=== PATIENT | male | born 1950 | race African-American/Black ===

== ENCOUNTER 2017-01-20 20:42 | Emergency (ER) | payer MEDICAID, OTHER ==
[~2017-01-20] VITALS: Ht 180.3 cm; Wt 87.1 kg
--- NOTE | 2017-01-20 21:09 | NUR ---
Pt is received alert, responsive as he came in with family at bedside c/o right midfinger pain , mostly when bending. His care continue as he is been seen by MD.
[2017-01-20 21:34] VITALS: BP 147/103
--- NOTE | 2017-01-20 21:35 | NUR ---
Pt is been disxcharge to home with dicharge instructions given and on Doxycycline 100mg po x2 daily and Ibprofen 600mg x3 daily as he is stable.
== END 2017-01-20 21:37 | disposition home or self-care (01) ==
LOC: ER 20:44
DX: M19.90 Unspecified osteoarthritis, unspecified site (principal); M79.89 Other specified soft tissue disorders; F17.200 Nicotine dependence, unspecified, uncomplicated; Z88.1 Allergy status to other antibiotic agents; Z88.2 Allergy status to sulfonamides
CPT/HCPCS: 99283; 99406; A4663

== ENCOUNTER 2017-05-12 22:35 | Emergency (ER) | payer MEDICAID ==
[~2017-05-12] VITALS: Ht 180.3 cm; Wt 80.7 kg
[2017-05-13] MEDS: OXYCODONE/APAP 5-325 MG TABLET PO ONE ×2 (00:16→00:22)
[2017-05-13] MEDS: ONDANSETRON ODT 4 MG TAB.RAPDIS SL ONE ×2 (00:16→00:20)
--- NOTE | 2017-05-13 00:18 | NUR ---
Patient discharged to home in stable conditon with family. Written and verbal after care instructions given. Patient verbalizes understanding of instructions. Stressed follow up or return to ER for worsening s/s.
--- NOTE | 2017-05-13 00:18 | NUR ---
Pt was not given Percocet po because pt stated he is driving home.
[2017-05-13] MEDS ORDERED: ONDANSETRON ODT 4 MG TAB.RAPDIS ONE (00:31)
[2017-05-13] MEDS ORDERED: OXYCODONE/APAP 5-325 MG TABLET ONE (00:31)
== END 2017-05-13 00:25 | disposition home or self-care (01) ==
LOC: ER 22:37
DX: S29.012A Strain of muscle and tendon of back wall of thorax, initial encounter (principal); F17.200 Nicotine dependence, unspecified, uncomplicated; J40 Bronchitis, not specified as acute or chronic; Z88.1 Allergy status to other antibiotic agents; Z88.2 Allergy status to sulfonamides; X58.XXXA Exposure to other specified factors, initial encounter; Y93.89 Activity, other specified; Y92.89 Other specified places as the place of occurrence of the external cause; Y99.8 Other external cause status
CPT/HCPCS: 70210; 71045; 99284; 99406; A4663; Q0162

== ENCOUNTER 2017-06-24 13:02 | Emergency (ER) | payer MEDICAID ==
[~2017-06-24] VITALS: Ht 182.9 cm; Wt 72.6 kg
[2017-06-24] MEDS ORDERED: HYDROCORTISONE PO (13:22)
[2017-06-24] MEDS ORDERED: CABERGOLINE PO (13:22)
[2017-06-24] MEDS ORDERED: [UNRECOGNIZED DRUG - OTHER] INJ (13:22)
[2017-06-24] MEDS ORDERED: LEVO88TA2 PO (13:22)
--- NOTE | 2017-06-24 14:10 | NUR ---
Patient discharged to home in stable conditon. Written and verbal after care instructions given. Patient verbalizes understanding of instructions.
[2017-06-24 14:11] VITALS: BP 118/70
== END 2017-06-24 14:11 | disposition home or self-care (01) ==
LOC: ER 13:09
DX: J06.9 Acute upper respiratory infection, unspecified (principal); Z88.2 Allergy status to sulfonamides; Z88.1 Allergy status to other antibiotic agents; Z88.8 Allergy status to other drugs, medicaments and biological substances
CPT/HCPCS: 71045; A4663

== ENCOUNTER 2020-02-16 19:14 | Emergency (ER) | payer MEDICAID, MEDICARE ==
[~2020-02-16] VITALS: Ht 180.3 cm; Wt 79.4 kg
[~2020-02-16 19:14] MED LIST: CABERGOLINE PO; HYDROCORTISONE PO; LEVO88TA2 PO; [UNRECOGNIZED DRUG - OTHER] INJ
[2020-02-16] MEDS ORDERED: TDAP DIPH,PERTUSS,TET VAC/PF 0.5 ML DISP.SYRIN IM ONE ×2 (19:41→19:45)
[2020-02-16 19:54] VITALS: BP 134/92
== END 2020-02-16 19:55 | disposition home or self-care (01) ==
LOC: ER 19:15
DX: S61.210A Laceration without foreign body of right index finger without damage to nail, initial encounter (principal); W26.8XXA Contact with other sharp object(s), not elsewhere classified, initial encounter; Y92.89 Other specified places as the place of occurrence of the external cause; Z88.1 Allergy status to other antibiotic agents; Z88.2 Allergy status to sulfonamides; Z86.39 Personal history of other endocrine, nutritional and metabolic disease; Z79.890 Hormone replacement therapy; R03.0 Elevated blood-pressure reading, without diagnosis of hypertension
CPT/HCPCS: 90715; A4217; A4663

== ENCOUNTER 2020-02-26 17:56 | Inpatient (IN) | payer MEDICARE ==
[~2020-02-26] VITALS: Ht 180.3 cm; Wt 80.3 kg
--- NOTE | 2020-02-26 18:37 | NUR ---
Dr Guan at the bedside for MSE.
[2020-02-26] MEDS ORDERED: IPRATROPIUM BROMIDE 0.5 MG/2.5 ML NEBU NEB ONE ×2 (18:45→22:30)
[2020-02-26] MEDS ORDERED: IV NORMAL SALINE 1000 ML BAG IV ONE (18:45)
[2020-02-26] MEDS ORDERED: ALBUTEROL SULFATE 2.5 MG/3 ML NEBU NEB ONE ×2 (18:45→22:30)
[2020-02-26] MEDS ORDERED: ALBUTEROL SULFATE 2.5 MG/3 ML NEBU ONE ×2 (18:50→22:31)
[2020-02-26] MEDS ORDERED: IPRATROPIUM BROMIDE 0.5 MG/2.5 ML NEBU ONE ×2 (18:51→22:31)
[2020-02-26 19:01] LABS: BASOPHILS # (AUTO) 0.1 K/uL (0.0-8.0); BASOPHILS % (AUTO) 0.9 % (0.0-2.0); EOSINOPHILS # (AUTO) 0.4 K/uL (0.0-0.7); EOSINOPHILS % (AUTO) 5.2 % (0.0-7.0); HEMOGLOBIN 13.3 g/dL (12.5-16.3); LYMPHOCYTES # (AUTO) 2.3 K/uL (20.0-40.0); LYMPHOCYTES % (AUTO) 27.4 % (20.5-51.5); MEAN CORPUSCULAR HEMOGLOBIN 30.7 uug (23.8-33.4); MEAN CORPUSCULAR HGB CONC 34 g/dL (32.5-36.3); MEAN CORPUSCULAR VOLUME 90.3 fL (73.0-96.2); MONOCYTES # (AUTO) 0.8 K/uL (2.0-10.0); MONOCYTES % (AUTO) 9.1 % (0.0-11.0); NEUTROPHILS # (AUTO) 4.9 K/uL (1.8-8.9); NEUTROPHILS % (AUTO) 57.4 % (38.5-71.5); PLATELET COUNT (AUTO) 225 K/uL (152-348); RED BLOOD CELL COUNT(AUTO) 4.32 MIL/uL (4.06-5.63); WHITE BLOOD COUNT (AUTO) 8.6 K/uL (3.6-10.2)
[2020-02-26 19:04] LABS: CREATININE 1.3 mg/dL (0.6-1.3); POTASSIUM 4.1 mmol/L (3.5-5.1)
[2020-02-26 19:17] LABS: BILIRUBIN,DIRECT 0.1 mg/dL (0.0-0.2); BILIRUBIN,TOTAL 0.3 mg/dL (0.2-1.0); TOTAL PROTEIN, SERUM 7.4 g/dL (6.4-8.2)
[2020-02-26] MEDS ORDERED: IV NORMAL SALINE 250 ML IV ONE (19:46)
[2020-02-26] MEDS ORDERED: IOHEXOL 350 100 ML INFUS..BTL ONE (19:46)
[2020-02-26] MEDS ORDERED: SWABABLE VALVE TRANSFER SET EA MC ONE (19:46)
--- NOTE | 2020-02-26 19:55 | NUR ---
Pt out of ER for CT.
--- NOTE | 2020-02-26 20:23 | NUR ---
Pt back to ER from CT.
[2020-02-26] MEDS ORDERED: HEPARIN SODIUM,PORCINE 5,000 UNITS/ML VIAL ONE (21:29)
[2020-02-26] MEDS ORDERED: HEPARIN SODIUM,PORCINE 5,000 UNITS/ML VIAL IV ONE (21:30)
--- NOTE | 2020-02-26 21:31 | NUR ---
Dr. Guan on panel call with Luiza Hurst NP. Patient accepted for admission to [facility], diagnosis: pulmonary embolism.
[2020-02-26] MEDS ORDERED: ONDANSETRON 4 MG/2 ML VIAL IV PRN (23:15)
[2020-02-26] MEDS ORDERED: MAGNESIUM HYDROXIDE 30 ML LIQUID UDC PO PRN (23:15)
[2020-02-26] MEDS ORDERED: Z GUARD REMEDY PASTE 57 GM TUBE TOP PRN (23:15)
[2020-02-26] MEDS ORDERED: ACETAMINOPHEN 325 MG TABLET PO PRN (23:15)
--- NOTE | 2020-02-27 00:15 | NUR ---
Ultrasound at bedside.
--- NOTE | 2020-02-27 01:14 | NUR ---
Report given to Elena MEADE Tele.
[2020-02-27 01:48] VITALS: BP 120/67
--- NOTE | 2020-02-27 01:48 | NUR ---
Received pt via yahir from ED. Pt AAOx4. No s/s of acute distress noted. Pt on 4L NC and denies SOB. Safety measures in place and will continue to monitor.
[2020-02-27 04:00] VITALS: BP 107/66
[2020-02-27] MEDS: PANTOPRAZOLE SODIUM 40 MG TABLET.DR PO SCH (06:18)
[2020-02-27] MEDS: LEVOTHYROXINE SODIUM 88 MCG TABLET PO SCH (06:19)
[2020-02-27 06:42] LABS: BASOPHILS % (AUTO) 0.6 % (0.0-2.0); EOSINOPHILS # (AUTO) 0.3 K/uL (0.0-0.7); EOSINOPHILS % (AUTO) 5.4 % (0.0-7.0); HEMATOCRIT 34.8 % (36.7-47.1); HEMOGLOBIN 11.8 g/dL (12.5-16.3); LYMPHOCYTES % (AUTO) 31.8 % (20.5-51.5); MEAN CORPUSCULAR HEMOGLOBIN 30.8 uug (23.8-33.4); MEAN CORPUSCULAR HGB CONC 34 g/dL (32.5-36.3); MEAN CORPUSCULAR VOLUME 90.6 fL (73.0-96.2); MONOCYTES # (AUTO) 0.7 K/uL (2.0-10.0); MONOCYTES % (AUTO) 10.8 % (0.0-11.0); NEUTROPHILS # (AUTO) 3.3 K/uL (1.8-8.9); NEUTROPHILS % (AUTO) 51.4 % (38.5-71.5); PLATELET COUNT (AUTO) 194 K/uL (152-348); RED BLOOD CELL COUNT(AUTO) 3.84 MIL/uL (4.06-5.63); WHITE BLOOD COUNT (AUTO) 6.4 K/uL (3.6-10.2)
[2020-02-27 07:11] LABS: CREATININE 1.3 mg/dL (0.6-1.3); MAGNESIUM 2.1 mg/dL (1.8-2.4); PHOSPHOROUS 3.4 mg/dL (2.5-4.9); POTASSIUM 3.9 mmol/L (3.5-5.1); THYROID STIMULATING HORMONE 0.217 mIU/mL (0.358-3.740)
--- NOTE | 2020-02-27 07:30 | NUR ---
Received patient AOx4 in bed asleep. Easy to awake. Complains of back pain. Rama SOB or chest pain. on 4L NC saturating at 96%. All needs met at this time. Safety and fall precautions in place. Will continue to monitor.
--- NOTE | 2020-02-27 08:30 | NUR ---
RECEIVED PATIENT AWAKE, ALERT AND ORIENTED X 4. SR ON MONITOR. ON 4L O2 NC, SATURATION AT 97%. IV ON LEFT AC 18G - FLUSHED AND PATENT. CONTINENT OF B/B. ABLE TO AMBULATE TO BATHROOM. SAFETY PRECAUTIONS IN PLACE. WILL CONTINUE TO MONITOR.
--- NOTE | 2020-02-27 08:37 | NUR ---
Hold lovenox per md order
[2020-02-27] MEDS ORDERED: ENOXAPARIN SODIUM 80 MG/0.8 ML DISP.SYRIN SQ SCH (09:00)
[2020-02-27] MEDS ORDERED: LEVOTHYROXINE SODIUM 88 MCG TABLET PO SCH (09:00)
[2020-02-27] MEDS: RIVAROXABAN 15 MG TABLET PO SCH ×2 (10:04→20:57)
[2020-02-27] MEDS: ALBUTEROL SULFATE 2.5 MG/3 ML NEBU NEB SCH ×4 (11:17→23:03)
[2020-02-27] MEDS: IPRATROPIUM BROMIDE 0.5 MG/2.5 ML NEBU NEB SCH ×4 (11:17→23:03)
[2020-02-27 11:30] VITALS: BP 108/64
[2020-02-27 16:00] VITALS: BP 117/68
[2020-02-27 20:03] VITALS: BP 110/74
--- NOTE | 2020-02-27 21:00 | NUR ---
Patient awake, alert and in bed. Patient has no s/s of respiratory distress at this time. On 4L/min NC. Does not report pain at this time. Bed is locked and in the lowest position. Tolerated all medications that were given. Will continue to monitor.
[2020-02-28 00:08] VITALS: BP 123/65
[2020-02-28] MEDS: IPRATROPIUM BROMIDE 0.5 MG/2.5 ML NEBU NEB SCH ×6 (03:45→22:30)
[2020-02-28] MEDS: ALBUTEROL SULFATE 2.5 MG/3 ML NEBU NEB SCH ×6 (03:45→22:30)
[2020-02-28 04:00] VITALS: BP 122/59
--- NOTE | 2020-02-28 06:00 | NUR ---
Patient slept throughout the night with no complaints. No s/s of pain throughout the night. On 4L NC. Patient given a breathing tx Q4H but is still coughing. Bed is locked and in lowest position. Side rails up X 2. Will endorse to day shift.
[2020-02-28 06:21] LABS: ABG BASE EXCESS 0.8 mmol/L; ABG HCO3 25.9 mmol/L; ABG PCO2 43.5 mmHg (35.0-45.0); ABG PH 7.393 (7.350-7.450); ABG PO2 78.6 mmHg (75.0-100.0); ABG SITE LEFT RADIAL; ABG TOTAL HEMOGLOBIN 11.6 G/dL (13.5-18.0); COHb 0.4 % (0.5-1.5); MetHb 0.3 % (0.0-1.5); O2Hb 95.5 % (94.0-97.0); VENT MODE Nasal Cannula
[2020-02-28] MEDS: PANTOPRAZOLE SODIUM 40 MG TABLET.DR PO SCH (06:35)
[2020-02-28] MEDS: LEVOTHYROXINE SODIUM 88 MCG TABLET PO SCH (06:36)
--- NOTE | 2020-02-28 07:05 | NUR ---
Patient reported coughing up 5 pieces of clots this morning. Notified Pierre Grimes [employer]. Will communicate with day shift to f/u.
--- NOTE | 2020-02-28 08:00 | NUR ---
RECEIVED PATIENT AWAKE, ALERT AND ORIENTED X 4. ON 4L O2 NC, SATURATION WNL. VSS. CONTINENT OF B/B. ABLE TO AMBULATE TO RESTROOM. NO S/S OF DISTRESS NOTED AT THIS TIME. SAFETY PRECAUTIONS IN PLACE. WILL CONTINUE TO MONITOR.
--- NOTE | 2020-02-28 08:45 | NUR ---
OXYGEN TITRATION TO RA. PATIENT TOLERATING RA. SATURATION AT 90-93%. WILL CONTINUE TO MONITOR. NO S/S OF DISTRESS NOTED AT THIS TIME. PATIENT DENIES SOB OR PAIN.
[2020-02-28] MEDS: RIVAROXABAN 15 MG TABLET PO SCH ×2 (09:54→21:46)
[2020-02-28 11:31] VITALS: BP 121/70
[2020-02-28] MEDS: HYDROCORTISONE 10 MG TABLET PO SCH (13:52)
--- NOTE | 2020-02-28 14:00 | NUR ---
SEEN BY DR GUSTAFSON - PRIMARY, DR DE LA TORRE - CARDIOLOGY, AND DR DOZIER - PULMONOLOGY. SEE MD NOTES.
[2020-02-28 16:00] VITALS: BP 110/65
--- NOTE | 2020-02-28 16:04 | NUR ---
PATIENT REMAINS COMFORTABLE WITH RA, SATURATION OF 96%. NO S/S OF DISTRESS NOTED. OCCASIONALLY COUGHING, SPUTUM SPECIMEN FOR C/S SENT.
[2020-02-28] MEDS ORDERED: CABERGOLINE PO (18:17)
[2020-02-28] MEDS ORDERED: HYDROCORTISONE PO (18:20)
--- NOTE | 2020-02-28 19:30 | NUR ---
patient aaox3. no s/s of acute distress noted. v/s stable. fall precautions in place. RA 96%. will continue to monitor and asses.
[2020-02-28 20:55] VITALS: BP 119/64
[2020-02-29 00:54] VITALS: BP 113/75
[2020-02-29] MEDS: ALBUTEROL SULFATE 2.5 MG/3 ML NEBU NEB SCH ×6 (02:30→23:30)
[2020-02-29] MEDS: IPRATROPIUM BROMIDE 0.5 MG/2.5 ML NEBU NEB SCH ×6 (02:30→23:30)
[2020-02-29 04:51] VITALS: BP 107/66
[2020-02-29] MEDS: PANTOPRAZOLE SODIUM 40 MG TABLET.DR PO SCH (06:14)
[2020-02-29] MEDS: LEVOTHYROXINE SODIUM 88 MCG TABLET PO SCH (06:14)
--- NOTE | 2020-02-29 06:26 | NUR ---
patient slept intermittently throughout the night. no s/s of acute distress noted throughout shift. v/s stable and on RA 98%. safety precautions in place, bed in lowest position, side rails up x2, and bed alarm on. call light within reach. all medication administered and tolerated well and needs attended to. will continue to monitor and assess until morning endorsement.
[2020-02-29] MEDS: HYDROCORTISONE 10 MG TABLET PO SCH (07:59)
--- NOTE | 2020-02-29 08:00 | NUR ---
AWAKE ALERT AND ORIENTED X3 NO SS OF PAIN OR SOB. SR ON MONITOR.
[2020-02-29] MEDS: RIVAROXABAN 15 MG TABLET PO SCH ×2 (09:08→20:39)
--- NOTE | 2020-02-29 09:29 | NUR ---
SEEN AND EXAMINED BY DR ARTHUR PANIAGUA DC IN AM. SEE NOTES
[2020-02-29] MEDS ORDERED: methylPREDNISolone SOD SUCC 40 MG/ML VIAL IV ONE (10:00)
[2020-02-29 11:31] VITALS: BP 115/76
[2020-02-29 15:55] VITALS: BP 107/59
--- NOTE | 2020-02-29 18:37 | NUR ---
PLAN DC IN AM, NO SOB TOLERATING RA SATURATING 97%
--- NOTE | 2020-02-29 19:30 | NUR ---
RECEIVED PT AWAKE,ALERT AND ORIENTEDX4. PT IN NO ACUTE DISTRESS. PT ON ROOM AIR. PT IV INTACT. SAFETY AND COMFORT PROVIDED. WILL CONTINUE TO MONITOR.
[2020-02-29 20:02] VITALS: BP 114/64
[2020-03-01] MEDS: ALBUTEROL SULFATE 2.5 MG/3 ML NEBU NEB SCH ×6 (00:30→19:49)
[2020-03-01] MEDS: IPRATROPIUM BROMIDE 0.5 MG/2.5 ML NEBU NEB SCH ×6 (00:30→19:49)
[2020-03-01 04:08] VITALS: BP 111/64
--- NOTE | 2020-03-01 06:09 | NUR ---
Notify drone pilot for critical lab that was called by [facility] ([facility]) for critical lab of positive blood culture. Gram positive cocci in clusters result.Awaiting for call back and orders. Charge nurse aware. Pt in no acute distress.
[2020-03-01] MEDS: LEVOTHYROXINE SODIUM 88 MCG TABLET PO SCH (06:17)
[2020-03-01] MEDS: PANTOPRAZOLE SODIUM 40 MG TABLET.DR PO SCH (06:18)
--- NOTE | 2020-03-01 06:54 | NUR ---
PT SLEPT INTERMITTENTLY. PT IN NO ACUTE DISTRESS. PRESCRIBED MEDICATION GIVEN AND PT TOLERATED IT WELL. SAFETY AND COMFORT PROVIDED. ALL NEEDS ARE MET. WILL ENDORSE TO INCOMING NURSE FOR CONTINUITY OF CARE.
[2020-03-01] MEDS: RIVAROXABAN 15 MG TABLET PO SCH ×2 (08:02→20:06)
[2020-03-01] MEDS: HYDROCORTISONE 10 MG TABLET PO SCH (08:02)
[2020-03-01] MEDS: VANCOMYCIN IV 1,250 MG in IV DEXTROSE 5% 250 ML IV SCH (10:45)
[2020-03-01 12:00] VITALS: BP 116/73
[2020-03-01 16:00] VITALS: BP 111/72
[2020-03-01 20:14] VITALS: BP 110/70
--- NOTE | 2020-03-01 20:30 | NUR ---
Patient awake, alert, oriented and in bed. Denies any pain or SOB. No s/s of respiratory distress. Tolerated all medications given. Bed is locked and in lowest position. Will continue to monitor patient.
[2020-03-02] MEDS: IPRATROPIUM BROMIDE 0.5 MG/2.5 ML NEBU NEB SCH ×6 (03:30→23:29)
[2020-03-02] MEDS: ALBUTEROL SULFATE 2.5 MG/3 ML NEBU NEB SCH ×6 (03:30→23:29)
[2020-03-02 04:00] VITALS: BP 125/75
[2020-03-02] MEDS: VANCOMYCIN IV 1,250 MG in IV DEXTROSE 5% 250 ML IV SCH ×2 (04:24→22:33)
[2020-03-02] MEDS: LEVOTHYROXINE SODIUM 88 MCG TABLET PO SCH (06:06)
[2020-03-02] MEDS: PANTOPRAZOLE SODIUM 40 MG TABLET.DR PO SCH (06:06)
[2020-03-02 06:23] LABS: CREATININE 1.3 mg/dL (0.6-1.3)
--- NOTE | 2020-03-02 06:28 | NUR ---
Patient slept intermittently throughout the night with no complaints. On room air with no s/s of respiratory distress. Patient has a slight cough and reported coughing up small "pieces of blood," at 0415H. Otherwise patient is not in any acute distress and denies any difficulty breathing. O2 sat is 97% on RA. Safety measures initiated. Will endorse to day shift.
--- NOTE | 2020-03-02 07:09 | NUR ---
Patient given prune juice to help aide in BM
--- NOTE | 2020-03-02 07:15 | NUR ---
Received patient awake in bed. AO x 4. IV in right forearm 20G patent and intact. Patient does not complain of pain or shortness of breath at the moment. No acute distress noted. Will continue to monitor.
--- NOTE | 2020-03-02 08:00 | NUR ---
Patient noted with bloody cough. Dr. Palmer notified; advised to continue to administer Xarelto as ordered.
[2020-03-02] MEDS: HYDROCORTISONE 10 MG TABLET PO SCH (08:10)
[2020-03-02] MEDS: RIVAROXABAN 15 MG TABLET PO SCH ×2 (08:38→20:41)
[2020-03-02 11:55] VITALS: BP 115/75
--- NOTE | 2020-03-02 12:30 | NUR ---
Per Dr. Genao, patient is pending discharge. Waiting for final results of blood culture.
[2020-03-02 15:23] VITALS: BP 125/62
--- NOTE | 2020-03-02 18:07 | NUR ---
Patient aware of pending discharge. No signs of distress, no complaints of pain. Patient stable throughout shift. Will endorse to oncoming nurse.
--- NOTE | 2020-03-02 19:30 | NUR ---
Awake, alert, receiving breathing treatment at this time, tolerating well. HOB elevated. Denies any pain/discomforts/cough at this time. Safety measures and fall prevention maintained. Continue care as planned.
[2020-03-02 20:00] VITALS: BP 116/71
[2020-03-03] MEDS: ALBUTEROL SULFATE 2.5 MG/3 ML NEBU NEB SCH ×2 (03:30→07:56)
[2020-03-03] MEDS: IPRATROPIUM BROMIDE 0.5 MG/2.5 ML NEBU NEB SCH ×2 (03:30→07:56)
[2020-03-03 04:00] VITALS: BP 124/82
[2020-03-03] MEDS: PANTOPRAZOLE SODIUM 40 MG TABLET.DR PO SCH (06:14)
[2020-03-03] MEDS: LEVOTHYROXINE SODIUM 88 MCG TABLET PO SCH (06:14)
--- NOTE | 2020-03-03 06:30 | NUR ---
Shift End Report: Slept well. No complaint presented all night. Awakened this morning coughing with small mount of light pink sputum. but reported that when he went to the bathroom he has one coughing episode with some lumps/blood clots on it but flushed down the drain. Denies any pain, but just slight throat discomforts . All needs attended and met. Continue care as planned.
[2020-03-03 08:04] LABS: BASOPHILS % (AUTO) 0.4 % (0.0-2.0); EOSINOPHILS # (AUTO) 0.7 K/uL (0.0-0.7); EOSINOPHILS % (AUTO) 9.3 % (0.0-7.0); HEMATOCRIT 33.7 % (36.7-47.1); HEMOGLOBIN 11.5 g/dL (12.5-16.3); LYMPHOCYTES # (AUTO) 2.4 K/uL (20.0-40.0); MEAN CORPUSCULAR HEMOGLOBIN 30.9 uug (23.8-33.4); MEAN CORPUSCULAR HGB CONC 34 g/dL (32.5-36.3); MEAN CORPUSCULAR VOLUME 90.4 fL (73.0-96.2); MONOCYTES # (AUTO) 0.5 K/uL (2.0-10.0); MONOCYTES % (AUTO) 7.7 % (0.0-11.0); NEUTROPHILS # (AUTO) 3.4 K/uL (1.8-8.9); NEUTROPHILS % (AUTO) 48.6 % (38.5-71.5); PLATELET COUNT (AUTO) 232 K/uL (152-348); RED BLOOD CELL COUNT(AUTO) 3.73 MIL/uL (4.06-5.63)
[2020-03-03 08:13] LABS: CREATININE 1.3 mg/dL (0.6-1.3); MAGNESIUM 1.9 mg/dL (1.8-2.4); PHOSPHOROUS 4.3 mg/dL (2.5-4.9); POTASSIUM 3.8 mmol/L (3.5-5.1)
[2020-03-03] MEDS: HYDROCORTISONE 10 MG TABLET PO SCH (08:50)
[2020-03-03] MEDS: RIVAROXABAN 15 MG TABLET PO SCH (09:04)
[2020-03-03] MEDS ORDERED: RIVA20TA PO (09:50)
[2020-03-03] MEDS ORDERED: RIVA10TA PO ×2 (09:52→09:55)
--- NOTE | 2020-03-03 12:09 | NUR ---
PATIENT DISCHARGE TO HOME. INTRAVENOUS 20 GAUGE CATHETER REMOVAL WITH INTACT CATHETER TIP. PATIENT VERBALIZES UNDERSTANDING OF ALL TEACHING, MEDICATION, AND FOLLOW UP CARE. GIVEN AND COPY OF THIS INSTRUCTION. THE PATIENT IS AMBULATORY WITH A STEADY GAIT. HE TOOK ALL BELONGINGS AND LEFT HOSPITAL VIA PRIVATE TAXI. LESLIE MADISON RN
[2020-03-19] MEDS ORDERED: RIVAROXABAN 10 MG TABLET PO SCH (18:00)
== END 2020-03-03 10:45 | disposition home or self-care (01) | DRG 175 ==
LOC: ER 17:58 → TELE3 02-27 01:19 → MEDSURG3 02-29 12:49
PROVIDERS: ADMIT Family Medicine; ATTEND Internal Medicine
DX: I26.94 Multiple subsegmental thrombotic pulmonary emboli without acute cor pulmonale (principal); J96.01 Acute respiratory failure with hypoxia; J98.11 Atelectasis; I82.612 Acute embolism and thrombosis of superficial veins of left upper extremity; J44.1 Chronic obstructive pulmonary disease with (acute) exacerbation; I27.82 Chronic pulmonary embolism; M19.90 Unspecified osteoarthritis, unspecified site; Z79.01 Long term (current) use of anticoagulants; Z88.1 Allergy status to other antibiotic agents; F17.210 Nicotine dependence, cigarettes, uncomplicated; Z91.19 Patient's noncompliance with other medical treatment and regimen; I44.1 Atrioventricular block, second degree
CPT/HCPCS: 36415; 36600; 70030-TC; 71045; 71275; 82785; 83605; 83615; 83735; 84100; 84443; 85025; 86140; 87040; 87070; 87400; 93307; 94640; 94664; A4663; G0378; J1644; J2920; J3590; J7030; J7040; J7050; J7060; Q9967

== ENCOUNTER 2022-07-07 02:20 | Emergency (ER) | payer MEDICARE, OTHER ==
[~2022-07-07] VITALS: Ht 180.3 cm; Wt 81.6 kg
[~2022-07-07 02:20] MED LIST changes: +RIVA10TA PO; +RIVA20TA PO
--- NOTE | 2022-07-07 03:00 | NUR ---
Patient ambulated to room with c/o SOB that started today, informed of plan care, assisted into gown, placed on monitor, bedside EKG in progress for MD review, #20g established in left ac, blood collected and sent to lab. Patient is alert and oriented x4, no s/s of any distress noted,100% on RA at this time. side rails up, will continue to monior.
[2022-07-07 03:11] LABS: HEMATOCRIT 37.2 % (36.7-47.1); MEAN CORPUSCULAR HEMOGLOBIN 31.1 uug (23.8-33.4); PLATELET COUNT (AUTO) 200 K/uL (152-348)
--- NOTE | 2022-07-07 03:40 | NUR ---
Patient continues to rest without any c/o pain or discomfort.
--- NOTE | 2022-07-07 03:53 | NUR ---
INFORMED MD THAT PATIENT WOULD LIKE THE BREATHING TREATMENT THAT HE RECEIVED BEFORE.
[2022-07-07 03:57] LABS: CREATININE 1.8 mg/dL (0.6-1.3); POTASSIUM 4.1 mmol/L (3.5-5.1)
--- NOTE | 2022-07-07 04:11 | NUR ---
UP AMBULATED TO BATHROOM AND BACK TO BED, RADIOLOGY AT BEDSIDE.
[2022-07-07 04:15] LABS: BILIRUBIN,DIRECT 0.1 mg/dL (0.0-0.2); BILIRUBIN,TOTAL 0.3 mg/dL (0.2-1.0)
[2022-07-07] MEDS ORDERED: ALBUTEROL SULFATE 2.5 MG/3 ML NEBU NEB ONE (04:15)
[2022-07-07] MEDS ORDERED: IPRATROPIUM BROMIDE 0.5 MG/2.5 ML NEBU NEB ONE (04:15)
[2022-07-07] MEDS ORDERED: IPRATROPIUM BROMIDE 0.5 MG/2.5 ML NEBU ONE (04:17)
[2022-07-07] MEDS ORDERED: ALBUTEROL SULFATE 2.5 MG/3 ML NEBU ONE (04:17)
[2022-07-07] MEDS ORDERED: ALBU8.5H8 IH (04:20)
--- NOTE | 2022-07-07 04:25 | NUR ---
RESPIRATORY AT BEDSIDE FROM TREATMENT.
--- NOTE | 2022-07-07 05:35 | NUR ---
Patient continues to rest with any c/o pain or discomfort, no change in prior assessment noted, will continue to monitor.
--- NOTE | 2022-07-07 06:04 | NUR ---
MD at bedside talking to patient, okay for discharge home, ACI given states understanding, HL removed, remains stable.
[2022-07-07 06:14] VITALS: BP 120/76
== END 2022-07-07 06:15 | disposition home or self-care (01) ==
LOC: ER 02:27
DX: R06.00 Dyspnea, unspecified (principal); J44.9 Chronic obstructive pulmonary disease, unspecified; F17.210 Nicotine dependence, cigarettes, uncomplicated; Z88.1 Allergy status to other antibiotic agents; Z88.2 Allergy status to sulfonamides; Z86.718 Personal history of other venous thrombosis and embolism; Z79.01 Long term (current) use of anticoagulants; Z86.711 Personal history of pulmonary embolism; Z86.39 Personal history of other endocrine, nutritional and metabolic disease; Z79.890 Hormone replacement therapy
CPT/HCPCS: 36415; 71045; 84484; 85025; 93005; A4663; J3590